=== PATIENT | male | born 1995 | race Caucasian/White ===

== ENCOUNTER 2019-02-04 03:48 | Inpatient (IN) | payer BC ==
[~2019-02-04] VITALS: Ht 180.3 cm; Wt 83.1 kg
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
[2019-02-04 03:55] VITALS: Ht 180.3 cm; Wt 83.1 kg
[2019-02-04 04:42] LABS: BASOPHIL % 0.7 % (0-2); PLATELET COUNT 317 x10^3mcL (130-400); RED CELL DISTRIBUTION WIDTH 12.9 % (11.5-14.5)
--- NOTE | 2019-02-04 05:07 | NUR ---
FATHER AND GIRLFRIEND AT BEDSIDE
[2019-02-04 05:09] LABS: CARBON DIOXIDE 26.4 mmol/L (21-32); CHLORIDE SERUM 106 mmol/L (98-107); GFR1 > 60 mL/min; GLUCOSE SERUM 111 mg/dL (74-106); POTASSIUM SERUM 3.8 mmol/L (3.5-5.1); SODIUM SERUM 145 mmol/L (136-145)
--- NOTE | 2019-02-04 05:09 | NUR ---
PATIENT AMBULATED TO THE BATHROOM WITH ASSISTANCE FROM [place] TO PROVIDE URINE SAMPLE. UPON RETURN, PLACED PATIENT IN GOWN AND PLACED BACK ON MONITORS FOR FURTHER OBSERVATION. SIDE RAILS UP FOR SAFETY AND SAFETY CHECK OF ROOM COMPLETE. PATIENT APPEARS FEARFUL, AND TEARY EYED AT MOMENTS. WILL CONTINUE TO MONITOR.
[2019-02-04 05:12] LABS: microscopic required? NO
[2019-02-04 05:18] LABS: UA SPECIFIC GRAVITY 1.015 (1.005-1.035); urine erythrocyte NEGATIVE (NEGATIVE)
[2019-02-04 05:22] LABS: ALBUMIN 4.6 g/dL (3.4-5.0); ALKALINE PHOSPHATASE 79 U/L (46-116); ALT/SGPT 45 U/L (16-63); AST/SGOT 15 U/L (15-37); BILIRUBIN TOTAL 0.19 mg/dL (0.20-1.00); FREE T4 1.44 ng/dL (0.76-1.46)
[2019-02-04 05:25] LABS: AMPHETAMINE QUAL UR NONE DETECTED (See below)
[2019-02-04 05:25] LABS: TOTAL PROTEIN, SERUM 8.6 g/dL (6.4-8.2)
--- NOTE | 2019-02-04 06:21 | NUR ---
PATIENT SLEEPING ON GURNEY- EASILY AROUSABLE. GFRIEND BEDSIDE. NO SS OF DISTRESS NOTED. BREATHING E/U. WILL CONTINUE TO MONITOR.
--- NOTE | 2019-02-04 07:00 | NUR ---
SPOKE WITH DR. MANUEL- PSYCHIATRIST AND GAVE UPDATED REPORT ON PATIENT STATUS. TELECONFERENCE WITH PATIENT AND MD FOLLOWED CONFERSATION WHEREAS DR RUSS STATED "I AM PLACING HIM ON A 5150 HOLD AND HE WILL NEED TO BE ADMITTED TO A [facility]" NOTIFIED DR. JIMENEZ OF STATUS AND HE STATES "I AM NOT MEDICALLY RELEASING HIM YET".
--- NOTE | 2019-02-04 07:27 | NUR ---
REPORT PROVIDED TO TYRON NIEVES FOR CONTINUED CARE OF PATIENT.
--- NOTE | 2019-02-04 07:30 | NUR ---
PT DAD AT BEDSIDE. PT REMOVING BELONGINGS. DAD IS TAKING HOME THE BELONGINGS. SHIRT, SHORTS, AND CHAIN NECKLACE. PT IS BEING COOPERATIVE AT THIS TIME, WITH OCCASIONAL TEARING UP.
--- NOTE | 2019-02-04 07:33 | NUR ---
PT DUNG NOW AT BEDSIDE
--- NOTE | 2019-02-04 08:00 | NUR ---
SPOKE TO [employer] REGARDING POSSIBLY WRITING PT HOLD THAT WAS INDICATED BY TELE PSYCH. SPOKE TO SHUKRI WHO STATES HE WILL TRY AND GET AN OFFICER OUT HERE TO WRITE THE HOLD
--- NOTE | 2019-02-04 08:49 | NUR ---
OFFICER OLGA LIDIA AT BEDSIDE WRITING [phone] HOLD
--- NOTE | 2019-02-04 09:01 | NUR ---
REPORT GIVEN TO TRAN ACKERMAN ON MS/T FOR FURTHER CARE OF PT
[2019-02-04 09:03] LABS: MAGNESIUM 2.4 mg/dL (1.8-2.4); PHOSPHOROUS 3.2 mg/dL (2.5-4.9)
--- NOTE | 2019-02-04 09:08 | NUR ---
PT IS REFUSING IV. SPOKE TO DR COREAS REGARDING PT REFUSING AND ADMITTING TO FLOOR. PER DR COREAS OKAY TO SEND PT UPSTAIRS TO TELE WITHOUT IV.
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
--- NOTE | 2019-02-04 10:12 | NUR ---
PT REFUSED ALL AM MEDS AT THIS TIME. PT ALSO DOES NOT HAVE IV ACCESS, REFUSED IN ED AND ADMITTING ATTENDING WAS NOTIFIED AND APPROVED TRANSFER WITH OUT IT. PER ER NURSE.
[2019-02-04 10:19] VITALS: BP 121/84
--- NOTE | 2019-02-04 12:36 | NUR ---
PT RESTING COMFORTABLY AT THIS TIME WITH EYES CLOSED. NO APPARENT DISTRESS. CALL LIGHT IN REACH NEEDS ATTENDED TO.
[2019-02-04 13:25] VITALS: BP 128/79
--- NOTE | 2019-02-04 14:45 | NUR ---
PT OFFERED LIBRIUM SCHEDULED DOSE ORDERED AND PT REFUSED. STATED "I DONT NEED IT".
--- NOTE | 2019-02-04 15:50 | NUR ---
PAGE GATE SENT TO DR. GARCIA AND MADE AWARE PT HAS REFUSED LIBRIUM, NOTED CONSULTATION REPORT FROM DR. SUAREZ CLEARING PT OFF [phone]. MADE AWARE OF REPORT WELL.
--- NOTE | 2019-02-04 17:20 | NUR ---
DR. GARCIA SPOKE WITH PT AND FAMILY. PT WILL BE STAYING OVERNIGHT FOR MONITORING EVEN THOUGH HE WAS CLEARED OFF [address] SUAREZ.
[2019-02-04 17:24] VITALS: BP 120/66
--- NOTE | 2019-02-04 18:23 | NUR ---
PT RESTING COMFORTABLY AT THIS TIME. DENIES ANY DISCOMFORT. FAMILY REMAINS AT BEDSIDE. WITH PLAN D/C TOMORROW PER PT. CALL LIGHT IN REACH NEEDS ATTENDED TO.
[2019-02-04 19:52] VITALS: BP 112/72
--- NOTE | 2019-02-04 20:11 | NUR ---
AWAKE AND ALERT, ORIENTED TO NAME, PLACE, TIME AND SITUATION. SPEECH CLEAR AND APPROPRIATE. ANSWERING QUESTIONS APPROPRIATELY. DENIES HAVING HALLUCINATION, DENIES HAVING SUICIDE THOUGHTS. CALM. SIGNIFICANT OTHER AT BEDSIDE.
--- NOTE | 2019-02-04 22:37 | NUR ---
FAMILY MEMBERS AND SIGNIFICANT OTHER LEFT EARLIER. PT EYES CLOSED, BREATHING EVEN AND UNLABORED. HOB ELEVATED 30 DEG. CALL LIGHT WITHIN EASY REACH.
--- NOTE | 2019-02-05 00:21 | NUR ---
hector vidal aware pt refused po meds tonight.
--- NOTE | 2019-02-05 03:58 | NUR ---
EYES CLOSED, BREATHING UNLABORED. CALL LIGHT WITHIN EASY REACH
[2019-02-05 04:23] VITALS: BP 108/73
--- NOTE | 2019-02-05 06:35 | NUR ---
SLEPT THROUGH MOST OF SHIFT. STATED HE IS COMFORTABLE. BREATHING EVEN AND UNLABORED. ORIENTED X 4. SPEECH CLEAR AND APPROPRIATE. DENIES HAVING HALLUCINATIONS. CALL LIGHT WITHIN EASY REACH.
--- NOTE | 2019-02-05 07:15 | NUR ---
EYES CLOSED, BREATHING UNLABORED. CALL LIGHT WITHIN EASY REACH. ENDORSED TO NURSE ANGELA
--- NOTE | 2019-02-05 07:15 | NUR ---
RECEIVED PATIENT FROM HYDRAULIC AND PLUMBING INSTALLER NURSE. PATIENT IS RESTING WTIH BOTH EYES CLOSED, AROUSABLE. TELE#[id number], SR, HR 67. ON ROOM AIR, BREATHING EVEN AND UNLABORED. NO IV ACCESS. DENIES PAIN AND DISCOMFORT. CALL LIGHT WITHIN EASY REACH. WILL CONTINUE PLAN OF CARE.
[2019-02-05 10:42] VITALS: BP 123/75
[2019-02-05] MEDS ORDERED: LIB25 PO (11:51)
[2019-02-05] MEDS ORDERED: THI100 PO (11:52)
[2019-02-05] MEDS ORDERED: THERA-M CAPLET1 EACH PO (11:52)
[2019-02-05] MEDS ORDERED: FOL1 PO (11:52)
--- NOTE | 2019-02-05 13:11 | NUR ---
CASE MANAGEMENT CONTACTED AT THIS TIME REGARDING PATIENT EDUCATION. TO BE WITH PATIENT IN ABOUT 10-15 MINUTES. PATIENT GIVEN ALL DC INSTRUCTIONS AND PAPERWORK AT THIS TIME. ALL QUESTIONS ANSWERED REGARDING DC. TELE MONITOR RETURNED TO WELDING MACHINE OPERATOR HELPER [employer]. PATIENT TO CONTACT AFTER CM GIVES EDUCATION.
== END 2019-02-05 13:30 | disposition home or self-care (01) | DRG 92 ==
LOC: ED 03:48 → DU 07:27
PROVIDERS: Emergency Medicine; ADMIT General Practice
DX: G92 Toxic encephalopathy (principal); F05 Delirium due to known physiological condition; F32.3 Major depressive disorder, single episode, severe with psychotic features; F17.220 Nicotine dependence, chewing tobacco, uncomplicated; Z83.3 Family history of diabetes mellitus; Z80.9 Family history of malignant neoplasm, unspecified
CPT/HCPCS: 84439; G0480; Q0092